=== PATIENT | female | born 1995 | race African-American/Black ===

== ENCOUNTER 2022-09-03 19:27 | Inpatient (IN) | payer OTHER ==
[2022-09-03] MEDS ORDERED: AMPICILLIN SODIUM 2 GM VIAL ONE (20:06)
[2022-09-03] MEDS ORDERED: OXYTOCIN 20 UNITS in 0.9% NS 20 UNIT/1,000 ML INFUS.BAG IV ONE (20:17)
[2022-09-03 20:36] LABS: BASO % 0.5 % (0-2.0); EOS % 0.7 % (0-4.5); HEMATOCRIT 34.3 % (32.4-45.2); HEMOGLOBIN 11.5 GM/dL (10.7-15.3); LYMPH % 16.2 % (8-40); MCH 30.8 pg (25.7-33.7); MCHC 33.6 g/dl (32.0-36.0); MEAN CELL VOLUME 91.7 fl (80-96); MEAN PLT VOLUME 10.1 fl (7.5-11.1); MONO % 10.4 % (3.8-10.2); NEUT % 72.2 % (42.8-82.8); PLATELET COUNT 316 10^3/uL (134-434); RBC 3.74 M/mm3 (3.60-5.2); RDW 12.6 % (11.6-15.6); WHITE BLOOD COUNT 13.9 K/mm3 (4.0-10.0)
[2022-09-03] MEDS ORDERED: LIDOCAINE HCL 1% PRESERVATIVE FREE - 30ML VIAL ONE (20:45)
[2022-09-03 20:46] LABS: CALCIUM 9.6 mg/dL (8.5-10.1)
[2022-09-03 20:47] LABS: BLOOD UREA NITROGEN 7.8 mg/dL (7-18); INR 1.11 (0.83-1.09); PROTHROMBIN TIME (PATIENT) 12.8 SEC (9.7-13.0)
[2022-09-03 20:50] LABS: CREATININE 0.9 mg/dL (0.55-1.3)
[2022-09-03 20:52] LABS: BILIRUBIN,TOTAL 0.5 mg/dL (0.2-1); TOT PROT 7.1 g/dl (6.4-8.2)
[2022-09-03] MEDS ORDERED: AMPICILLIN - 2 GM in SODIUM CHLORIDE 100 ML IVPB ONE ×2 (21:07→21:35)
[2022-09-03] MEDS: ELECTROLYTE-148 SOLN 1,000 ML IV SCH (23:36)
[2022-09-04] MEDS ORDERED: OXYTOCIN 20 UNITS in 0.9% NS 20 UNIT/1,000 ML INFUS.BAG IV SCH (00:27)
[2022-09-04] MEDS ORDERED: ACETAMINOPHEN 325 MG TABLET (FP) PO PRN (00:55)
[2022-09-04] MEDS ORDERED: oxyCODONE HCL 5 MG TABLET PO PRN (00:56)
[2022-09-04] MEDS ORDERED: WITCH HAZEL 50% (TUCKS) 40 PAD/JAR PAD TP PRN (00:56)
[2022-09-04] MEDS ORDERED: BENZOCAINE 20% 57 GM BOTTLE TP PRN (00:56)
[2022-09-04] MEDS: ELECTROLYTE-148 SOLN 1,000 ML IV SCH ×3 (01:23→23:33)
[2022-09-04] MEDS: IBUPROFEN 600 MG TABLET (FP) PO PRN ×2 (01:50→18:04)
[2022-09-04 06:25] VITALS: RESP 18
[2022-09-04 13:48] LABS: HIV INTERPRETATION NEGATIVE (NEGATIVE)
[2022-09-04 19:15] VITALS: TEMP 99
[2022-09-05 11:43] VITALS: BP 109/75; PULSE 98
== END 2022-09-05 12:25 | disposition home or self-care (01) | DRG 560 ==
LOC: EDBD 19:27 → JLDR 19:27 → J3W 09-04 00:26
PROVIDERS: ADMIT Obstetrics & Gynecology; ATTEND Obstetrics & Gynecology
PROC: 10E0XZZ Delivery of Products of Conception, External Approach (ICD-10-PCS; principal; 2022-09-03)
DX: O42.02 Full-term premature rupture of membranes, onset of labor within 24 hours of rupture (principal); O62.3 Precipitate labor; O70.0 First degree perineal laceration during delivery; Z3A.38 38 weeks gestation of pregnancy; Z37.0 Single live birth
CPT/HCPCS: 36415; 59409; 80053; 85025; 85610; 85730; 86780; 86850; 86900; 86901; 87389; C9803-CS; U0003; U0005